=== PATIENT | female | born 1970 | race Caucasian/White ===

== ENCOUNTER 2017-09-03 13:47 | Emergency (ER) | payer SELFPAY ==
[~2017-09-03] VITALS: Ht 152.4 cm; Wt 62.3 kg
[2017-09-03 13:53] VITALS: BP 171/89; TEMP 98.5
[2017-09-03] MEDS ORDERED: IBU600 MG PO (16:22)
[2017-09-03] MEDS ORDERED: FLEXERIL 1010 MG/TAB PO (16:22)
[2017-09-03 16:33] VITALS: PULSE 105
== END 2017-09-03 16:34 | disposition home or self-care (01) ==
LOC: COL.ER 13:47
DX: M54.6 Pain in thoracic spine (principal); Z88.6 Allergy status to analgesic agent; F17.210 Nicotine dependence, cigarettes, uncomplicated; W20.8XXA Other cause of strike by thrown, projected or falling object, initial encounter
CPT/HCPCS: J2360